=== PATIENT | female | born 1970 | race Caucasian/White ===

== ENCOUNTER 2019-10-24 09:07 | Outpatient (CLI) | payer OTHER | END 2019-10-24 09:08 | disposition home or self-care (01) | LOC: DTY/OP 09:07 | PROVIDERS: ATTEND Surgery | DX: E66.01 Morbid (severe) obesity due to excess calories (principal) | CPT/HCPCS: 97802 ==

== ENCOUNTER 2024-05-05 13:51 | Observation (INO) | payer OTHER, SELFPAY ==
[2024-05-05 17:30] VITALS: BMI 20.7
[2024-05-06 18:20] VITALS: BP 102/68; TEMP 98
== END 2024-05-06 18:27 | disposition home or self-care (01) ==
LOC: ERS 13:51 → SURG A 16:25
PROVIDERS: ADMIT Specialist; ATTEND Specialist
DX: K56.609 Unspecified intestinal obstruction, unspecified as to partial versus complete obstruction (principal); Z90.49 Acquired absence of other specified parts of digestive tract; Z98.84 Bariatric surgery status
CPT/HCPCS: 74177; 74250; 80053; 83690; 85025; 96361; 96374; 96375; 96376; G0378; J1885; J2272; J2405; J3480; Q9967; S0028